=== PATIENT | female | born 1970 | race Caucasian/White ===

== ENCOUNTER 2016-07-31 07:05 | Day surgery (SDC) | payer OTHER ==
[~2016-07-31] VITALS: Ht 167.6 cm; Wt 110.0 kg
--- NOTE | 2016-08-05 13:29 | OR ---
ADMIT: 07/31/2016 RM/LOC: [facility] MR#: [id number] [address] [id number] [place] [address] [place] [address] Operative/Delivery Room Report SEX: F AGE: 45 : 1970 SURGERY DATE: 07/31/2016 SURGEON: Jono Pacheco MD PREOPERATIVE DIAGNOSES: 1. Symptomatic cholelithiasis. 2. Chronic cholecystitis and stones. POSTOPERATIVE DIAGNOSES: 1. Symptomatic cholelithiasis. 2. Chronic cholecystitis and stones. FINAL PATHOLOGY: Pending. PROCEDURE: Laparoscopic cholecystectomy. ANESTHESIA: General endotracheal tube anesthesia. [employer]IVERS LICENSE EXAMINER: Shabnam Prescott APRN NP who was necessary for adequate exposure, retraction at completion of this case. ESTIMATED BLOOD LOSS: 25 mL or less. INDICATION FOR PROCEDURE: Please see H and P. After the risks, benefits, possible complications, and the alternatives have been explained, and informed consent had been obtained, the patient was taken back to the operating room, underwent general anesthesia, and the surgical field was prepped and draped in a sterile manner. An infraumbilical incision was made. The Veress needle was inserted. The abdomen was insufflated with CO2. Once there was adequate insufflation, a 5-mm port was placed, camera was placed through this port site under direct visualization and placed a 10-mm epigastric port and two 5-mm right upper quadrant ports. The gallbladder was raised superiorly and anteriorly with several stones, a few of them stuck kind of down toward the neck of the gallbladder. Slowly dissected out the cystic duct coming directly off the gallbladder seen in picture #2. It was clipped ADMIT: 07/31/2016 RM/LOC: [facility] MR#: [id number] [address] [place] [address] [place] [id number] [place] [address] [place] [address] Operative/Delivery Room Report SEX: F AGE: 45 : 1970 proximally, distally, and divided. Behind this, the cystic artery was dissected out. There were anterior and posterior branches. These were both dissected out, clipped proximally, distally, and divided. The gallbladder was then removed from the liver bed using electrocautery and Endoshears, placed in EndoCatch bag as seen in picture #3 and removed through the epigastric port site. Inspecting the liver bed, there was good hemostasis. I irrigated and removed as much irrigation as possible. I injected some 0.5% Marcaine in the incision site for pain control. Closed the fascia of the epigastric port site with an 0-Polysorb suture using a couple different sutures. All the ports were removed. The skin was all closed with 4-0 Monocryl. Tolerated the procedure well, was being extubated when I left the room, was in stable and satisfactory condition with all needle and lap counts correct x2. Jono Pacheco MD/ erika JOB #: [id number] CC: Jono Pacheco, Attending Physician Júnior Calzada, Family Physician
== END 2016-07-31 15:05 | disposition home or self-care (01) ==
LOC: SSS 07:05
PROC: 0FT44ZZ Resection of Gallbladder, Percutaneous Endoscopic Approach (ICD-10-PCS; principal; 2016-07-31)
DX: K80.11 Calculus of gallbladder with chronic cholecystitis with obstruction (principal); K21.9 Gastro-esophageal reflux disease without esophagitis; F17.200 Nicotine dependence, unspecified, uncomplicated; Z79.899 Other long term (current) drug therapy; Z98.890 Other specified postprocedural states